=== PATIENT | female | born 1950 | race Caucasian/White ===

== ENCOUNTER 2024-05-17 11:03 | Day surgery (SDC) | payer MEDICARE, BC ==
[~2024-05-17 11:03] MED LIST: LIDOCAINE 1% (10MG/ML) FOR IV START INTRADERMA PRN
[2024-05-17 12:00] VITALS: TEMP 98.1
[2024-05-17] MEDS: IV FLUID CONTINUATION 1,000 ML IV ONE (12:06)
[2024-05-17] MEDS: LACTATED RINGERS 1,000 ML IV SCH (12:10)
[2024-05-17] MEDS ORDERED: PROPOFOL 10 MG/ML 20 ML VIAL IV ONE (13:24)
[2024-05-17 14:10] VITALS: BP 144/81; PULSE 60; RESP 16
--- NOTE | 2024-05-17 17:51 | P.OP ---
Date of Procedure: 05/17/24 Preoperative Diagnosis: GI Bleed Postoperative Diagnosis: Poor Prep Procedure(s) Performed: 1. Flexible Sigmoidoscopy 2. Aborted Colonoscopy Anesthesia: MAC Surgeon: Guanako Bailey Pathology: none sent Condition: stable Disposition: PACU Description of Procedure: After informed consent was obtained from the patient, the patient was placed in the left lateral position. Digital rectal exam was performed revealing normal sphincter tone and no external hemorrhoids. An endoscope was then inserted into rectum. The quality of the preparation was poor. Under direct visualization, the endoscope was advanced to 60 cm from the anus without difficulty, and then slowly withdrawn, with careful examination of the colonic mucosa. The mucosa was normal with the normal vascular pattern and no granularity, friability, or ulceration. There was no evidence of other polyps, masses, diverticula, or angiodysplasia. Decision was made not to proceed past 60 cm and continue the colonoscopy due to poor prep. The colonoscope was then removed and the procedure was terminated. The patient tolerated the procedure well without complications.
== END 2024-05-17 14:43 | disposition home or self-care (01) ==
LOC: ORWHC2ENDO 11:03
PROVIDERS: ATTEND Surgery
DX: K92.1 Melena (principal); Z53.09 Procedure and treatment not carried out because of other contraindication
CPT/HCPCS: 45330; J2704

== ENCOUNTER 2024-06-02 08:43 | Day surgery (SDC) | payer MEDICARE, BC ==
[2024-05-31 16:00] VITALS: BMI 26.2
[2024-06-02] MEDS: IV FLUID CONTINUATION 1,000 ML IV ONE (09:52)
[2024-06-02 10:01] VITALS: TEMP 97.6
[2024-06-02] MEDS: LACTATED RINGERS 1,000 ML IV SCH (10:14)
[2024-06-02] MEDS ORDERED: PROPOFOL 10 MG/ML 20 ML VIAL IV ONE (10:28)
[2024-06-02] MEDS ORDERED: LIDOCAINE 1% INJ 10MG/ML (20 ML MDV) ONE (10:28)
--- NOTE | 2024-06-02 10:57 | P.PCN ---
Date of Procedure: 06/02/24 Preoperative Diagnosis: GERD Rectal bleeding Postoperative Diagnosis: Pyloric inflammation Ascending colon polyp Procedure(s) Performed: EGD with biopsy Colonoscopy with hot snare polypectomy Anesthesia: MAC Surgeon: Isael Rocha Pathology: other (Biopsies of duodenum, pylorus, GE junction, ascending colon polyp) Condition: stable Disposition: same day Indications for Procedure: 73-year-old female presents today for upper and lower endoscopy. She has family history of stomach cancer and reflux with plan for upper endoscopy. Patient has had recent rectal bleeding with plan for lower endoscopy. Risks, benefits and alternatives were provided to patient. All questions answered. Operative Findings: Inflammation around the pylorus, biopsies taken Ascending colon polyp Description of Procedure: The patient was brought into the endoscopy suite and placed in left lateral decubitus position. Adequate sedation was achieved using conscious sedation. A bite-block was placed and an endoscope was placed in the oropharynx and advanced under endoscopic visualization. The endoscope was advanced through the esophagus into the stomach, through the gastric antrum and in through the pylorus. The third portion of duodenum was visualized. The endoscope was then slowly withdrawn. The first portion of duodenum was mildly inflamed. Biopsies were taken. The antrum was noted to have inflammation at the pylorus. Biopsies were taken. The gastric body distended normally and the gastric folds appeared normal and flattened with insufflation. A retroflexed view of the fundus and GE junction revealed no significant hiatal hernia. GE junction appeared normal and biopsies were taken. The esophagus appeared endoscopically normal. Excess air was removed and the scope was withdrawn. Digital rectal exam was performed and mild internal hemorrhoids were palpated. An endoscope was then placed in the rectum and advanced to the cecum as identified by landmarks including the appendiceal orifice and the ileocecal valve. The prep was good. The colonoscope was then slowly withdrawn, examining for any mucosal abnormalities. The cecum, ascending, transverse, descending and sigmoid colon were visualized adequately. There were no large neoplastic lesions noted throughout the colon. Small polyp was noted in the ascending colon. This was removed with hot snare polypectomy. No evidence of diverticulosis. Hemostasis was maintained. Retroflexion was performed in the rectum and internal hemorrhoid. Excess air was removed, the colonoscope withdrawn and the procedure terminated. The patient was then transferred to the recovery unit in stable condition. Repeat colonoscopy should be performed in 5 years.
[2024-06-02 11:01] VITALS: RESP 16
[2024-06-02 11:13] VITALS: BP 152/74; PULSE 67
== END 2024-06-02 11:41 | disposition home or self-care (01) ==
LOC: ORWHC2ENDO 08:43
PROVIDERS: ATTEND Surgery
DX: D12.2 Benign neoplasm of ascending colon (principal); K29.51 Unspecified chronic gastritis with bleeding; K21.01 Gastro-esophageal reflux disease with esophagitis, with bleeding; I10 Essential (primary) hypertension; E78.5 Hyperlipidemia, unspecified; Z85.828 Personal history of other malignant neoplasm of skin; Z80.0 Family history of malignant neoplasm of digestive organs; Z79.899 Other long term (current) drug therapy
CPT/HCPCS: 88305; 45385; 43239; J2003; J2704

== ENCOUNTER 2024-07-26 12:17 | Emergency (ER) | payer MEDICARE, BC ==
[2024-07-26 12:30] VITALS: RESP 16
[2024-07-26] MEDS: IBUPROFEN 600 MG TAB PO STA (12:52)
--- NOTE | 2024-07-26 13:49 | XR ---
EXAMINATION TYPE: XR knee complete LT DATE OF EXAM: 07/26/2024 1:04 PM COMPARISON: None CLINICAL INDICATION: Female, 73 years old with history of pain; PHH, pain TECHNIQUE: XR knee complete LT 3 views submitted. FINDINGS: No evidence of any acute osseous pathology, soft tissue swelling, or joint effusion is no kaylyn. Tricompartmental osteophyte formation involving the femoral condyles, tibial plateau and patella . Mild joint space narrowing. IMPRESSION: 1. No acute osseous pathology. 2. Mild tricompartmental osteoarthritic changes. [facility], , 07/26/2024 1:47 PM
--- NOTE | 2024-07-26 13:59 | ED ---
Lower Extremity Injury HPI - General Chief Complaint: Extremity Injury, Lower Stated Complaint: L knee injury Time Seen by Provider: 07/26/24 12:31 Source: patient, RN notes reviewed Mode of arrival: wheelchair Limitations: no limitations - History of Present Illness Initial Comments: 73-year-old female presents emergency department chief complaint of left knee pain. Patient states that she was getting back onto a tractor when she knee twisted felt a pop in the posterior aspect she has pain throughout her knee feels like it swollen. No prior knee injuries no falls no other complaints. - Related Data Home Medications Medication Instructions Recorded Confirmed Losartan [Cozaar] 25 mg PO HS 05/12/24 06/02/24 Omeprazole 40 mg PO DAILY PRN 05/12/24 06/02/24 Simvastatin 40 mg PO HS 05/12/24 06/02/24 Allergies Allergy/AdvReac Type Severity Reaction Status Date / Time No Known Allergies Allergy Verified 07/26/24 12:30 Review of Systems ROS Statement: Those systems with pertinent positive or pertinent negative responses have been documented in the HPI. ROS Other: All systems not noted in ROS Statement are negative. Past Medical History Past Medical History: Cancer, GERD/Reflux, Hyperlipidemia, Hypertension Additional Past Medical History / Comment(s): basal cell cancer - MOHs procedure, blood in stool x 2 on 04/29/24 History of Any Multi-Drug Resistant Organisms: None Reported Past Surgical History: Bladder Surgery, Hysterectomy Additional Past Surgical History / Comment(s): colonoscopy, bladder suspension, MOHs procedure Lt. nose Past Anesthesia/Blood Transfusion Reactions: No Reported Reaction Past Psychological History: No Psychological Hx Reported Smoking Status: Never smoker - Past Family History Father Family Medical History: Cancer Additional Family Medical History / Comment(s): stomach cancer Mother Family Medical History: Cancer, CVA/TIA, Hypertension Additional Family Medical History / Comment(s): colon cancer Brother(s) Additional Family Medical History / Comment(s): 4 brothers have from cancer. 1 brother from heart issues General Exam Limitations: no limitations General appearance: alert, in no apparent distress Head exam: Present: atraumatic, normocephalic, normal inspection Neck exam: Present: normal inspection. Absent: tenderness, meningismus, lymphadenopathy Respiratory exam: Present: normal lung sounds bilaterally. Absent: respiratory distress, wheezes, rales, rhonchi, stridor Cardiovascular Exam: Present: regular rate, normal rhythm, normal heart sounds. Absent: systolic murmur, diastolic murmur, rubs, gallop, clicks Extremities exam: Present: other (Left knee full range of motion with pain with full extension, minimal laxity negative valgus and varus neurovascular intact) Course Vital Signs 07/26/24 12:26 Temperature 97.8 F Pulse Rate 56 L Respiratory 16 Rate Blood Pressure 150/85 O2 Sat by Pulse 99 Oximetry Medical Decision Making - Medical Decision Making Was pt. sent in by a medical professional or institution (, [facility], [employer], urgent care, hospital, or jail...) When possible be specific @ -No Did you speak to anyone other than the patient for history (EMS, parent, family, police, friend...)? What history was obtained from this source @ -No Did you review nursing and triage notes (agree or disagree)? Why? @ -I reviewed and agree with nursing and triage notes Were old charts reviewed (outside hosp., previous admission, EMS record, old EKG, old radiological studies, urgent care reports/EKG's, jail records)? Report findings @ -No old charts were reviewed Differential Diagnosis (chest pain, altered mental status, abdominal pain women, abdominal pain men, vaginal bleeding, weakness, fever, dyspnea, syncope, headache, dizziness, GI bleed, back pain, seizure, CVA, palpatations, mental health, musculoskeletal)? @ -Knee sprain ligamentous injury, leg fracture EKG interpreted by me (3pts min.). @ -None X-rays interpreted by me (1pt min.). @ -X-ray left knee showing tricompartmental osteoarthritis CT interpreted by me (1pt min.). @ -None done U/S interpreted by me (1pt. min.). @ -None done What testing was considered but not performed or refused? (CT, X-rays, U/S, labs)? Why? @ -None What meds were considered but not given or refused? Why? @ -None Did you discuss the management of the patient with other professionals (professionals i.e. [facility] R[facility], [employer], lab, RT, psych nurse, hospice social worker, pricing strategist, teacher, minesweeping officer, binder caser)? Give summary @ -No Was smoking cessation discussed for >3mins.? @ -No Was critical care preformed (if so, how long)? @ -No Were there social determinants of health that impacted care today? How? (Homelessness, low income, unemployed, alcoholism, drug addiction, transportation, low edu. Level, literacy, decrease access to med. care, half-way, rehab)? @ -No Was there de-escalation of care discussed even if they declined (Discuss DNR or withdrawal of care, Hospice)? DNR status @ -No What co-morbidities impacted this encounter? (DM, HTN, Smoking, COPD, CAD, Cancer, CVA, ARF, Chemo, Hep., AIDS, mental health diagnosis, sleep apnea, morbid obesity)? @ -None Was patient admitted / discharged? Hospital course, mention meds given and route, prescriptions, significant lab abnormalities, going to OR and other pertinent info. @ -This patient has ligamentous injury of her left knee negative x-rays. Patient was placed in a knee splint to follow-up with orthopedics return for as discussed. Undiagnosed new problem with uncertain prognosis? @ -No Drug Therapy requiring intensive monitoring for toxicity (Heparin, Nitro, Insulin, Cardizem)? @ -No Were any procedures done? @ -No Diagnosis/symptom? @ -Left knee sprain, ligamentous injury Acute, or Chronic, or Acute on Chronic? @ -Acute Uncomplicated (without systemic symptoms) or Complicated (systemic symptoms)? @ - uncomplicated Side effects of treatment? @ -No Exacerbation, Progression, or Severe Exacerbation? @ -No Poses a threat to life or bodily function? How? (Chest pain, [place], [place], pneumonia, PE, COPD, DKA, ARF, appy, cholecystitis, CVA, Diverticulitis, Homicidal, Suicidal, threat to staff... and all critical care pts) @ -No Disposition Clinical Impression: Injury of ligament of left knee Disposition: HOME SELF-CARE Condition: Stable Instructions (If sedation given, give patient instructions): Knee Sprain (ED) Additional Instructions: Please return to the Emergency Department if symptoms worsen or any other concerns. Is patient prescribed a controlled substance at d/c from ED?: No Referrals: Tanvir Cantu MD [Primary Care Provider] - 1-2 days Vineet Trejo DO [Doctor of Osteopathic Medicine] - 1-2 days Time of Disposition: 13:59
[2024-07-26 14:40] VITALS: BP 152/79; PULSE 52; TEMP 97.9
== END 2024-07-26 14:46 | disposition home or self-care (01) ==
LOC: EC 12:17
DX: S83.92XA Sprain of unspecified site of left knee, initial encounter (principal); X50.1XXA Overexertion from prolonged static or awkward postures, initial encounter
CPT/HCPCS: 73562; 99283; L1830

== ENCOUNTER → 2024-08-04 | Outpatient (CLI) | payer MEDICARE, BC ==
--- NOTE | 2024-08-04 12:24 | MR ---
EXAMINATION TYPE: MR knee LT wo con DATE OF EXAM: 08/04/2024 10:38 AM COMPARISON: Radiographs 07/29/2024 CLINICAL INDICATION: Female, 73 years old with history of M25.562 L knee pain, left knee pain for 2 w eeks due to bending down TECHNIQUE: Multiplanar, multisequence imaging of the left knee is performed without IV contrast. FINDINGS: The ACL, PCL, and MCL are intact. There is inhomogeneous signal within the popliteus tendon. Otherwise, LCL complex is intact. There is a large oblique tear extending through the posterior horn and body of the medial meniscus wi th mild extrusion of the meniscal body. Mild to moderate irregular cartilage thinning mid weightbearing aspect of the medial compartment. Inner margin radial tear body of the lateral meniscus. Mild irregular cartilage thinning mid weightbe aring aspect of the lateral compartment. There is moderate cartilage thinning along the trochlear groove but preserved patellar articular cart ilage. Extensor mechanism is intact. Small knee joint effusion with trace early Edwards's cyst. There is a 2.1 x 1.5 cm ganglion cyst at the origin of the medial head gastrocnemius suggesting parti al tear at the origin. Normal popliteal artery anatomy. Mild generalized muscle atrophy. No suspicious bone marrow replaceme nt. IMPRESSION: 1. Popliteus tendinosis/strain. 2. Large oblique tear extending through the posterior horn and body of the medial meniscus. 3. Small inner margin radial tear body of the lateral meniscus. 4. Mild overall medial and patellofemoral compartmental OA. 5. A 2.1 x 1.5 cm ganglion cyst at the origin of the medial head gastrocnemius with suggestion of a p artial tear here at the origin. [facility], , 08/04/2024 12:21 PM
== END | disposition home or self-care (01) ==
LOC: RADMRIMAIN 09:41
PROVIDERS: ATTEND Orthopaedic Surgery
DX: S83.242A Other tear of medial meniscus, current injury, left knee, initial encounter (principal); S83.282A Other tear of lateral meniscus, current injury, left knee, initial encounter; M17.12 Unilateral primary osteoarthritis, left knee; M67.462 Ganglion, left knee

== ENCOUNTER 2024-09-21 08:05 | Day surgery (SDC) | payer MEDICARE, BC ==
[2024-09-19 15:08] VITALS: BMI 26.6
--- NOTE | 2024-09-21 00:39 | HP ---
HISTORY AND PHYSICAL DATE OF SURGERY: 09/21/2024. HISTORY OF PRESENT ILLNESS: A 74-year-old patient seen with progressive left knee pain. We discussed options regarding treatment. She elected to proceed with left knee arthroscopy. Consent regarding the procedure was obtained. Medical clearance was obtained. PAST MEDICAL HISTORY: Hypertension, hyperlipidemia. PAST SURGICAL HISTORY: Hysterectomy. DAILY MEDICATIONS: Losartan, simvastatin. ALLERGIES: None. SOCIAL HISTORY: She denies tobacco use. PHYSICAL EVALUATION OF THE LEFT KNEE: The range of motion is 0 to 115 degrees. Mild effusion. Tenderness in the medial and lateral joint lines. Positive medial Brti's. Ligaments stable. Hip rotation without pain. Distal neurovascular exam intact. RADIOGRAPHS: Left knee, mild osteoarthritis. MRI of the left knee, medial meniscal tear, lateral meniscal tear, effusion, small Edwards cyst. IMPRESSION: Internal derangement of left knee with medial lateral meniscal tears. PLAN: Left knee arthroscopy with partial medial/lateral meniscectomy and debridement. MMODL / IJN: [id number] /
[2024-09-21] MEDS: LACTATED RINGERS 1,000 ML IV SCH (08:55)
[2024-09-21] MEDS: DEXAMETHASONE SOD PHOSPHATE 4 MG/ML 1 ML VIAL IVP STA (08:56)
[2024-09-21] MEDS: ONDANSETRON 4 MG/2 ML VIAL IVP STA (08:56)
[2024-09-21] MEDS: IV FLUID CONTINUATION 1,000 ML IV ONE (08:56)
[2024-09-21] MEDS: BUPIVACAINE (PF) 0.25% 30 ML VIAL SQ ONE ×2 (09:23→10:01)
[2024-09-21] MEDS ORDERED: LIDOCAINE 1% INJ 10MG/ML (20 ML MDV) ONE (09:25)
[2024-09-21] MEDS ORDERED: PHENYLEPHRINE 10 MG/ML VIAL ONE (09:25)
[2024-09-21] MEDS ORDERED: MIDAZOLAM 2 MG/2 ML VIAL ONE (09:25)
[2024-09-21] MEDS ORDERED: GLYCOPYRROLATE 0.2 MG/ML 2 ML VIAL ONE (09:25)
[2024-09-21] MEDS ORDERED: PROPOFOL 10 MG/ML 20 ML VIAL IV ONE (09:25)
[2024-09-21] MEDS ORDERED: fentaNYL (PF) 50 MCG/ML 2 ML AMP ONE (09:25)
--- NOTE | 2024-09-21 10:19 | P.OP ---
Date of Procedure: 09/21/24 Preoperative Diagnosis: Internal derangement left knee Postoperative Diagnosis: 1. Tear medial and lateral meniscus left knee 2. Grade IV chondromalacia femoral sulcus left knee 3. Reactive synovitis medial, lateral and suprapatellar compartments left knee Procedure(s) Performed: 1. Arthroscopic partial medial and lateral meniscectomy left knee 2. Arthroscopic microfracture femoral sulcus left knee 3. Arthroscopic partial synovectomy medial, lateral and suprapatellar compartments left knee Anesthesia: ADARSHA, local Surgeon: Vineet Trejo Estimated Blood Loss (ml): 7 Pathology: none sent Condition: stable Disposition: PACU Indications for Procedure: 74-year-old patient seen with progressive left knee pain. After having treatment options discussed, she elected to proceed with arthroscopy. Operative Findings: See description of procedure Description of Procedure: Patient was taken to the operative suite. Patient underwent a general anesthetic by the department of anesthesia. Patient was given preoperative antibiotics. The left lower extremity was placed in a well-padded arthroscopic leg salas. The left leg was prepped and draped in the normal sterile orthopedic fashion. A lateral parapatellar and suprapatellar incision was made. Trochars were inserted. Arthroscopy was initiated. Suprapatellar pouch filled diffuse thick reactive synovitis. The patellofemoral joint appeared to articulate congruently. There was grade III/IV chondromalacia of the femoral sulcus with osteochondral flap tears present. The scope was guided into the medial gutter. No loose bodies or plica were identified. The scope was then guided into the medial compartment. A medial parapatellar incision was made. Trocar inserted followed by probe. There was a complex tear involving the posterior horn of the medial meniscus. There was grade II chondromalacia changes medial compartment without tears. There was thick reactive synovitis anteriorly. I performed a partial medial meniscectomy getting down to stable meniscal tissue. I performed a partial synovectomy decompressing the reactive synovitis. The residual meniscus was probed and was found to be stable. There was good decompression of the synovitis. Scope and probe were then guided into the intercondylar notch. Cruciates were identified, probed and found to be stable. The scope and probe were then guided into lateral compartment. There were grade I/II chondromalacia changes lateral compartment with some osteochondral flap tears. There was a radial tear involving the mid body lateral meniscus. There was thick reactive synovitis anteriorly. I performed a partial lateral meniscectomy getting down to stable meniscal tissue. I performed a chondroplasty of the lateral femoral condyle getting down to stable osteochondral tissue. I performed a partial synovectomy decompressing the reactive synovitis. The residual meniscus was probed and was found to be stable. The residual osteochondral surface was stable. There was good decom pression of the synovitis. The scope was in guided back into the suprapatellar compartment. I introduced a motorized shaver into the supra compartment. I debrided some piecemeal fragments of meniscus I encountered. I performed a chondroplasty of the femoral sulcus getting down to stable osteochondral tissue. I performed a partial synovectomy decompressing the reactive synovitis. I did note an area of grade IV chondromalacia involving the femoral sulcus measuring just over centimeter. I introduced a microfracture awl and I performed a microfracture to that area of exposed bone penetrating the bone with resultant bleeding at the microfracture site. The residual osteochondral surface was probed and was found to be stable. I noted good decompression of the synovitis. I took 1 more look around the entire knee, no residual debris. Instruments were now removed from the joint. The joint was infiltrated with .25% Marcaine. Steri-Strips were applied to the portal sites. Sterile dressings were applied. The patient was placed into a JUNO hose. No tourniquet was utilized. The patient was awakened, transferred to a bed and taken to recovery stable satisfactory condition.
[2024-09-21 10:20] VITALS: TEMP 96.9
[2024-09-21 10:41] VITALS: RESP 16
[2024-09-21] MEDS: HYDROmorphone 0.5 MG/0.5 ML SYRINGE IVP PRN (10:42)
[2024-09-21] MEDS: HYDROcodone/APAP 7.5-325MG 1 EACH TAB PO ONE (11:48)
[2024-09-21 12:52] VITALS: BP 137/75; PULSE 59
== END 2024-09-21 13:07 | disposition home or self-care (01) ==
LOC: OR 08:05
PROVIDERS: ATTEND Orthopaedic Surgery
DX: S83.232A Complex tear of medial meniscus, current injury, left knee, initial encounter (principal); S83.282A Other tear of lateral meniscus, current injury, left knee, initial encounter; M17.12 Unilateral primary osteoarthritis, left knee; M94.262 Chondromalacia, left knee; M65.862 Other synovitis and tenosynovitis, left lower leg; M71.22 Synovial cyst of popliteal space [Baker], left knee; I10 Essential (primary) hypertension; E78.2 Mixed hyperlipidemia; I27.29 Other secondary pulmonary hypertension; I08.1 Rheumatic disorders of both mitral and tricuspid valves; Z79.899 Other long term (current) drug therapy
CPT/HCPCS: 29880; 29879; 29876; J2250; J1100; J2405; J2003; J3010; J2704; J1171; J2371; J0665; J1596